=== PATIENT | female | born 2005 | race Caucasian/White ===

== ENCOUNTER 2024-11-24 10:54 | Emergency (ER) | payer BC, SELFPAY ==
[2024-11-24 10:58] VITALS: BP 135/92; PULSE 108; TEMP 36.6; O2SAT 100; BMI 16.5
--- NOTE | 2024-11-24 11:09 | ED_ITS ---
HPI HPI - General Adult General Chief complaint: Upper Respiratory Infection Stated complaint: SORE THROAT Time Seen by Provider: 11/24/24 11:04 Source: patient Mode of arrival: walk-in Limitations: no limitations History of Present Illness HPI narrative: cc = sore throat Pt developed throat pain about 3-4 days ago. She has tonsillar stones but this doesn't feel like that is the issue . Her work made her come and get screened for strep. she told me. No other symptoms at this time. Had some nasal congestion a few days ago - now resolved. no fever, muscle aches, vomiting. Related Data Home Medications ?Medication ?Instructions ?Recorded ?Confirmed No Known Home Medications 11/24/24 11/24/24 Allergies Allergy/AdvReac Type Severity Reaction Status Date / Time No Known Drug Allergies Allergy Verified 11/24/24 10:57 Opioid HPI Opioid Management Most Recent Opioid Data: No Data to Display PFSH PFSH Social History Little interest or pleasure in doing things: not at all Feeling down, depressed, or hopeless: not at all Exam Narrative Exam Narrative: Nurses notes and vital signs reviewed and patient is not hypoxic. afebrile General: Well-appearing and in no apparent distress. Skin: Warm, dry, no pallor noted. No rash. Head: Normocephalic, atraumatic. Neck: Supple, non-tender. No cervical, submandibular or submental lymphade nopathy Eye: Pupils are equal, round and EOMI. No scleral icterus. Ears, Nose, Mouth, and Throat: TM are clear, no nasal mucosal hypertrophy. Moderate posterior oropharynx erythema without exudate or ulcers, uvula is mid- line Oral mucosa is moist Cardiovascular: Tachycardia Respiratory: No accessory muscle use or respiratory distress. Lungs are clear to auscultation, no wheezing, rales or rhonchi Neurological: A&O x4. No cranial nerve dysfunction observed. No truncal ataxia. Moves all extremities. Sensation intact. Psychiatric: Cooperative and interactive. Normal mood and affect. Constitutional Vital Signs, click to edit/add: Last Vital Signs Temp 97.8 F 11/24/24 10:58 Pulse 108 H 11/24/24 10:58 Resp 20 11/24/24 10:58 BP 135/92 H 11/24/24 10:58 Pulse Ox 100 11/24/24 10:58 O2 Del Method Room Air 11/24/24 10:58 Course Vital Signs Vital signs: Vital Signs Temperature 97.8 F 11/24/24 10:58 Pulse Rate 108 H 11/24/24 10:58 Respiratory Rate 20 11/24/24 10:58 Blood Pressure 135/92 H 11/24/24 10:58 Pulse Oximetry 100 11/24/24 10:58 Oxygen Delivery Method Room Air 11/24/24 10:58 Temperature 97.8 F 11/24/24 10:58 Pulse Rate 108 H 11/24/24 10:58 Respiratory Rate 20 11/24/24 10:58 Blood Pressure 135/92 H 11/24/24 10:58 Pulse Oximetry 100 11/24/24 10:58 Oxygen Delivery Method Room Air 11/24/24 10:58 Medical Decision Making MDM Narrative Medical decision making narrative: strep screen = negative. On physical examination, I do not detect any sign of acute bacterial infection of the tonsils or abscess. Etiology likely viral. The tonsils are symmetrical and I do not suppose that the patient's tonsillar stones are the cause of her symptoms. She had URI symptoms associated with the onset of this sore throat, likely a viral pharyngitis. I prescribed BMX solution for her to take at home for symptomatic relief. She told me that the negative strep test will be adequate for her job. Lab Data Lab results reviewed: Yes I reviewed the patient's lab results Labs: Lab Results 11/24/24 Range/Units 11:00 Streptococcus Screen Negative Discharge Plan Discharge Chief Complaint: Upper Respiratory Infection Clinical Impression: Pharyngitis Patient Disposition: Home, Self-Care Time of Disposition Decision: 11:34 Prescriptions / Home Meds: No Action No Known Home Medications Print Language: Slovenian Instructions: Pharyngitis (ED) Additional Instructions: Rx'd BMX solution Referrals: Physician,Non-Staff, MD [Primary Care Provider] - 1 week
[2024-11-24 11:23] LABS: Internal Control Within Normal Limits; Strep A Antigen Screen Negative
== END 2024-11-24 11:47 | disposition home or self-care (01) ==
PROVIDERS: Emergency Provider Emergency Medicine
DX: J02.9 Acute pharyngitis, unspecified (principal)
CPT/HCPCS: 87070; 87880; 99283